=== PATIENT | female | born 1940 | race Caucasian/White ===

== ENCOUNTER → 2017-03-26 | Outpatient (CLI) | payer MEDICARE, OTHER ==
--- NOTE | 2017-03-26 13:26 | REP ---
NUCLEAR PARATHYROID SESTAMIBI SCAN: Following the intravenous administration of 27.1 mCi of technetium 99m Sestamibi, multiple images of the neck are performed in the anterior and both anterior oblique projections at 15 minutes and 3 hours post injection. There is bilateral salivary gland uptake. On the initial images, there is mild symmetrical activity in the thyroid bed. Delayed images show washout of this activity with no persistent focus of increased uptake in the thyroid bed and therefore no compelling scintigraphic evidence of parathyroid adenoma. IMPRESSION: No compelling scintigraphic evidence of parathyroid adenoma. Please note the patient was unable to undergo SPECT imaging due to patient body habitus. Signed by Leonid Talbert MD 03/26/2017 01:32 P
== END ==
LOC: M RAD 09:19
PROVIDERS: ATTEND Nurse Practitioner Family
DX: E83.52 Hypercalcemia (principal)
CPT/HCPCS: 78070; A9500